=== PATIENT | male | born 1980 | race Caucasian/White ===

== ENCOUNTER 2019-02-18 20:36 | Emergency (ER) | payer MEDICARE ==
[~2019-02-18] VITALS: Ht 170.2 cm; Wt 79.4 kg
[2019-02-18] MEDS ORDERED: DEPAKOTE ER500 MG PO (20:51)
[2019-02-18 21:20] VITALS: BP 129/88
== END 2019-02-18 21:21 | disposition home or self-care (01) ==
LOC: M.ERS 20:36
DX: A64 Unspecified sexually transmitted disease (principal); G40.909 Epilepsy, unspecified, not intractable, without status epilepticus

== ENCOUNTER 2019-08-19 02:28 | Emergency (ER) | payer OTHER ==
[~2019-08-19] VITALS: Ht 167.6 cm; Wt 77.1 kg
[~2019-08-19 02:28] MED LIST: DEPAKOTE ER500 MG PO
[2019-08-19] MEDS ORDERED: PREDNISONE50 MG PO (04:05)
[2019-08-19] MEDS ORDERED: PROAIR HFA8.5 GM INH (04:05)
[2019-08-19 04:14] VITALS: BP 139/80
== END 2019-08-19 04:15 | disposition home or self-care (01) ==
LOC: M.ERS 02:28
DX: J45.901 Unspecified asthma with (acute) exacerbation (principal); F17.210 Nicotine dependence, cigarettes, uncomplicated

== ENCOUNTER 2019-10-18 21:55 | Emergency (ER) | payer OTHER ==
[~2019-10-18] VITALS: Ht 170.2 cm; Wt 74.8 kg
[~2019-10-18 21:55] MED LIST changes: +PREDNISONE50 MG PO; +PROAIR HFA8.5 GM INH
[2019-10-18] MEDS ORDERED: VENTOLIN HFA 1818 GM INH (22:11)
[2019-10-18] MEDS ORDERED: PREDNISONE 20 M20 M1 PO (22:11)
[2019-10-18 22:33] VITALS: BP 118/68
== END 2019-10-18 22:33 | disposition home or self-care (01) ==
LOC: M.ERS 21:55
DX: J45.901 Unspecified asthma with (acute) exacerbation (principal); F17.200 Nicotine dependence, unspecified, uncomplicated

== ENCOUNTER 2019-10-20 01:26 | Emergency (ER) | payer OTHER ==
[~2019-10-20] VITALS: Ht 170.2 cm; Wt 74.8 kg
[~2019-10-20 01:26] MED LIST changes: +PREDNISONE 20 M20 M1 PO; +VENTOLIN HFA 1818 GM INH
[2019-10-20 01:54] VITALS: BP 138/87
== END 2019-10-20 01:54 | disposition home or self-care (01) ==
LOC: M.ERS 01:26
DX: J45.901 Unspecified asthma with (acute) exacerbation (principal); F17.210 Nicotine dependence, cigarettes, uncomplicated

== ENCOUNTER 2019-10-22 23:46 | Emergency (ER) | payer OTHER ==
[~2019-10-22] VITALS: Ht 170.2 cm; Wt 74.8 kg
[2019-10-23] MEDS ORDERED: PREDNISONE50 MG PO (00:03)
[2019-10-23] MEDS ORDERED: VENTOLIN HFA 1818 GM INH (00:03)
[2019-10-23 00:41] VITALS: BP 124/74
== END 2019-10-23 00:41 | disposition home or self-care (01) ==
LOC: M.ERS 23:46
DX: J45.901 Unspecified asthma with (acute) exacerbation (principal)

== ENCOUNTER 2019-10-23 02:59 | Emergency (ER) | payer OTHER ==
[~2019-10-23] VITALS: Ht 170.2 cm; Wt 74.8 kg
[2019-10-23 03:19] LABS: ABSOLUTE BASOPHILS 0.1 thou/uL (0.0-0.2); ABSOLUTE EOSINOPHILS 0.2 thou/uL (0.0-0.7); ABSOLUTE MONOCYTES 0.3 thou/uL (0.0-1.2); BASOPHILS 0.7 %; HEMATOCRIT 47.4 % (42.0-52.0); HEMOGLOBIN 16.3 gm/dL (14.0-18.0); LYMPHOCYTES 21.3 %; MCH 31.3 pg (26.0-34.0); MCHC 34.3 g/dL (28.0-37.0); MCV 91.5 fL (80.0-100.0); MONOCYTES 2.7 %; MPV 8.9 fl. (7.2-11.1); NUCLEATED RBCS 0 /100WBC; PLATELET COUNT* 314 thou/uL (150-400); POLYS 73.3 %; RBC 5.19 mil/uL (4.50-6.00); RDW-CV 13.3 % (10.5-14.5); WBC 9.6 thou/uL (4.0-11.0)
[2019-10-23 03:29] LABS: CALCIUM 8.3 mg/dL (8.5-10.1); CREATININE 1.4 mg/dL (0.6-1.3); POTASSIUM 4.4 mmol/L (3.5-5.1)
[2019-10-23 03:37] LABS: ALBUMIN 3.7 g/dL (3.4-5.0); TOTAL BILIRUBIN 0.1 mg/dL (<0.1-1.0); TOTAL PROTEIN 7.8 g/dL (6.4-8.2)
[2019-10-23 05:00] VITALS: BP 140/70
--- NOTE | 2019-10-24 15:10 | EKG ---
[place] [address] ELECTROCARDIOGRAM REPORT Name: GERALDINE HOLDEN [facility] [id number] Admission: 10/23/19 Attend Phys: Discharge: 10/23/19 Date of : 84 Report #: [id number] THIS REPORT FOR: //name// [facility] ED Test Date: 2019-10-23 Test Time: 03:07:26 Pat Name: GERALDINE HOLDEN Department: Room: Gender: M Etl Tester: [place] : 1980 Requested By: Stef Connell Order Number: [id number] MD: Mahendra Alamo Measurements Intervals [place] Rate: 111 P: 40 CO: 141 QRS: 25 QRSD: 79 T: 30 QT: 316 QTc: 430 Interpretive Statements Sinus tachycardia poor r wave progression No previous ECG available for comparison Electronically Signed On 10-24-2019 15:10:13 [employer] PROGRAM COORDINATOR by Mahendra Alamo [email or web address] <ELECTRONICALLY SIGNED> By: Mahendra Alamo MD, [facility] 10/24/19 1510 [id number] 030 Mahendra Alamo MD, FACC /EPI
== END 2019-10-23 05:05 | disposition home or self-care (01) ==
LOC: M.ERS 02:59
PROVIDERS: Emergency Medicine Emergency Medical Services
DX: R56.9 Unspecified convulsions (principal); J45.909 Unspecified asthma, uncomplicated

== ENCOUNTER 2020-02-22 01:27 | Emergency (ER) | payer OTHER ==
[~2020-02-22] VITALS: Ht 170.2 cm; Wt 81.7 kg
[2020-02-22] MEDS ORDERED: KEPPRA XR500 MG PO (01:34)
[2020-02-22] MEDS ORDERED: ANIMAL SHAPES1 EAC2 PO (01:35)
[2020-02-22] MEDS ORDERED: NORVASC 2.5 MG2.5 M1 PO (01:35)
[2020-02-22] MEDS ORDERED: VITAMIN B-1100 M2 PO (01:36)
[2020-02-22 01:57] LABS: ABSOLUTE BASOPHILS 0.1 thou/uL (0.0-0.2); ABSOLUTE EOSINOPHILS 0.3 thou/uL (0.0-0.7); ABSOLUTE LYMPHOCYTES 2.8 thou/uL (0.8-5.3); ABSOLUTE MONOCYTES 0.7 thou/uL (0.0-1.2); ABSOLUTE NEUTROPHILS 11.1 thou/uL (1.6-8.1); BASOPHILS 0.6 %; EOSINOPHILS 1.7 %; HEMATOCRIT 45.9 % (42.0-52.0); LYMPHOCYTES 18.7 %; MCHC 34.9 g/dL (28.0-37.0); MONOCYTES 4.6 %; MPV 9.5 fl. (7.2-11.1); NUCLEATED RBCS 0 /100WBC; PLATELET COUNT* 274 thou/uL (150-400); POLYS 74.4 %; RBC 5.16 mil/uL (4.50-6.00); RDW-CV 13.3 % (10.5-14.5)
[2020-02-22 02:03] LABS: CALCIUM 9.4 mg/dL (8.5-10.1); CREATININE 1.3 mg/dL (0.6-1.3); POTASSIUM 4.4 mmol/L (3.5-5.1)
[2020-02-22 02:16] LABS: ALBUMIN 4.4 g/dL (3.4-5.0); TOTAL BILIRUBIN 0.1 mg/dL (<0.1-1.0); TOTAL PROTEIN 8.3 g/dL (6.4-8.2)
[2020-02-22 02:50] LABS: URINE BILIRUBIN NEGATIVE (Negative); URINE BLOOD NEGATIVE (Negative); URINE CLARITY CLEAR; URINE COLOR YELLOW; URINE GLUCOSE-RANDOM NEGATIVE (Negative); URINE KETONES NEGATIVE (Negative); URINE LEUKOCYTES-REFLEX NEGATIVE (Negative); URINE NITRITE-REFLEX NEGATIVE (Negative); URINE PROTEIN NEGATIVE (Negative); URINE UROBILINOGEN 0.2 E.U./dl (0.2-1.0)
[2020-02-22 02:57] LABS: AMP/METHAMP Negative (Negative); BARBITURATES Negative (Negative); BENZODIAZEPINES Negative (Negative); COCAINE Negative (Negative); METHADONE Negative (Negative); OPIATES Negative (Negative); PCP Negative (Negative); THC Negative (Negative)
[2020-02-22 03:06] VITALS: BP 138/78
== END 2020-02-22 03:06 | disposition home or self-care (01) ==
LOC: M.ERS 01:27
PROVIDERS: Personal Emergency Response Attendant
DX: R56.9 Unspecified convulsions (principal); F41.9 Anxiety disorder, unspecified; J45.909 Unspecified asthma, uncomplicated; Z79.899 Other long term (current) drug therapy